=== PATIENT | male | born 1955 | race Caucasian/White ===

== ENCOUNTER 2018-03-13 02:32 | Emergency (ER) | payer SELFPAY ==
[2018-03-13 02:34] VITALS: BP 136/85; PULSE 94; RESP 16; TEMP 36.9; O2SAT 93; BMI 16.7
--- NOTE | 2018-03-13 03:08 | ED.RN ---
PT STATES I'M NOT WAITING. I'VE BEEN HERE HOURS AND I'VE READ TWO PAPERS. PT INFORMED THAT THE X-RAY HAS BEEN ORDERED AND IS READY TO BE TAKEN. PT STATES I'M NOT WAITING. THIS IS RIDICULOUS.
--- NOTE | 2018-03-13 03:10 | ED.RN ---
PATIENT DID NOT WANT TO WAIT TO HAVE AN XRAY DONE AND STATED HE WAS LEAVING. PT LEFT WITHOUT XRAY.
== END 2018-03-13 03:12 | disposition left against medical advice (07) ==
LOC: ED 03:10
PROVIDERS: Emergency Provider Emergency Medicine
DX: R07.81 Pleurodynia (principal)
CPT/HCPCS: 99281

== ENCOUNTER 2019-06-04 13:11 | Emergency (ER) | payer MEDICAID, SELFPAY ==
[2019-06-04 13:13] VITALS: BP 132/75; PULSE 93; RESP 17; TEMP 37.1; O2SAT 97; BMI 21.9
--- NOTE | 2019-06-04 14:19 | ED.VIS.GEN ---
History of Present Illness Informant: Patient, Significant Other Onset: Month(s) - 3-4 months Context: Gradual Onset Timing: Continuous Quality: swelling Location: both legs Current Severity: Severe Maximum Severity: Severe Worsened by: walking Relieved by: rest Associated Symptoms: denies Narrative: 64-year-old male who denies any significant past medical history but does not follow with a primary care physician presents to the emergency department with approximately 3 to 4 months of symmetrical lower extremity edema. Patient has not had any chest pain or shortness of breath, cough, orthopnea, paroxysmal nocturnal dyspnea. Denies recent travel or surgery, hemoptysis or history of DVT or PE. Patient denies trauma. He is not having back pain. He is ambulating normally. He does have some relief with elevation. He has not had a rash. He has no constitutional symptoms. Prior similar symptoms: Yes Recent Illness/Hospitalization: No <Bishnu Quintanilla - Last Filed: 06/04/19 14:34> <Cheryl Newton - Last Filed: 06/04/19 14:41> Chief Complaint: Edema Past Medical History Prior records reviewed: Yes Past Medical History: None Surgical History: tonsillectomy Lives: With Family Smoking Status: Former smoker Alcohol: Occasional Drugs: None <Bishnu Quintanilla - Last Filed: 06/04/19 14:34> <Cheryl Newton - Last Filed: 06/04/19 14:41> - Allergies and Home Meds Allergies/Adverse Reactions: Allergies No Known Allergies Allergy (Verified 06/04/19 13:13) Primary Care Physician: Jonas Shaw MD [STAFF PHYSICIAN] - 3-5 Days Review of Systems All systems negative except as indicated General: Denies: Chills, Fever Eyes: Denies: Visual changes - bilaterally, Blurred Vision - bilaterally, Diplopia ENT: Denies: Rhinorrhea, Sore throat Cardiovascular: Denies: Chest pain, Palpitations, Heart racing Respiratory: Denies: Dyspnea, Cough, Sputum, Dyspnea on exertion, Orthopnea, Paroxysmal nocturnal dyspnea Gastrointestinal: Denies: Abdominal pain, Nausea, Vomiting, Diarrhea Genitourinary: Denies: Dysuria, Hematuria, Frequency Musculoskeletal: Reports: Swelling. Denies: Myalgias, Arthralgias, Neck pain, Back pain, Extremity Pain Skin: Denies: Rash, Abscess, Abrasions, Wounds Neurological: Denies: Headache, Weakness, Parasthesia, Numbness Hematologic: Denies: Easy bruising, Easy bleeding <Gali Quintanillaony - Last Filed: 06/04/19 14:34> Physical Exam Vital Signs/Narrative: Vital Signs Temp Pulse Resp BP Pulse Ox 06/04/19 13:13 98.8 F 93 17 132/75 H 97 Inital Vital Signs reviewed: Yes General: Well nourished, Well developed Head: Normocephalic, Atraumatic Eyes: Perrl, EOMI ENT: Moist mucous membranes, No rhinorrhea Neck: Supple, Nontender Cardiovascular: Regular rate, Regular rhythm, No murmurs Respiratory: No distress, CTA bilaterally, Chest nontender Abdomen: Soft, Nontender, Nondistended, Normal bowel sounds Back: Nontender, Normal Inspection. Negative for: CVA tenderness Extremities: Edema, - - Patient has symmetrical lower extremity edema at 2+. It is pitting edema. There are no rashes seen. He has a very small area of redness on his right medial malleolus with a small wound. There is no lymphatic streaking. DP and PT pulses are both normal and symmetrical. Sensation capillary refill of all 5 toes on both feet are normal. Swelling stops below the knee. He has normal range of motion actively at both knees and hips and there is no groin pain swelling or redness. Negative for: Tenderness, Calf Tenderness Skin: Normal color, No rash, No Trauma Neurological: Alert, Oriented x3 Psychological: Normal affect <Bishnu Quintanilla - Last Filed: 06/04/19 14:34> Vital Signs/Narrative: Vital Signs Temp Pulse Resp BP Pulse Ox 06/04/19 13:13 98.8 F 93 17 132/75 H 97 <Cheryl Newton - Last Filed: 06/04/19 14:41> Diagnostic/Tx/Re-eval - Medical Decision Making Patient presents with chronic lower extremity edema. Is bilateral and symmetrical. He is not short of breath. His vital signs are stable. He does not have any signs or symptoms that would require ED workup. He will be started on Keflex. He will elevate his legs. He will follow-up with primary care to which she was referred to return for worsening symptoms which were discussed <Bishnu Quintanilla - Last Filed: 06/04/19 14:34> - Medical Decision Making Patient was seen with Bishnu the PA agree with history and physical as above, patient presents with bilateral lower extremity edema that is been chronic for many months this improves with elevation indicates he has some redness around the malleoli medially bilaterally for unspecified reasons he has no history of MRSA or infection he has no fever cough chest pain abdominal pain on exam he does have 2-3+ lower extremity edema and he has some redness over the malleoli bilaterally no vesicles no signs of acute vascular insufficiency or deep-seated infection clinically looks well We discussed ED work-up he declined that preferring outpatient management he will be started on Keflex wound care and to follow-up with his outpatient providers for further management see the chart for full details <Cheryl Newton - Last Filed: 06/04/19 14:41> ED Disposition <Bishnu Quintanilla - Last Filed: 06/04/19 14:34> <Cheryl Newton - Last Filed: 06/04/19 14:41> - Plan for ED Patient: Disposition: Home or Assisted Living Instructions: ED Peripheral Edema, Bilateral Prescriptions: Cephalexin [Keflex] 500 mg PO Q12 #14 cap Prescription Printed Referrals: Jonas Shaw MD [STAFF PHYSICIAN] - 3-5 Days
== END 2019-06-04 14:54 | disposition home or self-care (01) ==
PROVIDERS: Emergency Provider Physician Assistant Medical
DX: R60.0 Localized edema (principal); Z87.891 Personal history of nicotine dependence
CPT/HCPCS: 99283

== ENCOUNTER 2019-09-12 15:59 | Emergency (ER) | payer MEDICAID, SELFPAY ==
[2019-09-12 15:59] VITALS: BP 153/86; PULSE 107; RESP 20; TEMP 36.8; O2SAT 97; BMI 23.6
[2019-09-12 16:46] VITALS: BP 153/86; PULSE 107; RESP 20; TEMP 36.8; O2SAT 97
--- NOTE | 2019-09-12 16:50 | EKG12_ITS ---
Test Reason : Blood Pressure : / mmHG Vent. Rate : 113 BPM Atrial Rate : 113 BPM P-R Int : 172 ms QRS Dur : 076 ms QT Int : 334 ms P-R-T Axes : 061 060 066 degrees QTc Int : 458 ms Sinus tachycardia Otherwise normal ECG Confirmed by ALEXA SCHULTZ ([id number]), video editor JAMES POLO ([id number]) on 09/19/2019 1:41:42 PM Referred By: KIMBERLY Confirmed By:ALEXA SCHULTZ
--- NOTE | 2019-09-12 16:55 | ED.VIS.GI ---
History of Present Illness Chief Complaint: Nausea/Vomiting/Diarrhea Informant: Patient Limited: Uncooperative - Abdominal Pain/Flank Pain Onset: Today - Nausea/Vomiting/Emesis GI Symptom: Nausea, Vomiting Quality: Coffee ground, Hematemesis - Diarrhea/Melena/Hematochezia GI Symptom: Melena Narrative: Is a 64-year-old male with history of daily alcohol use but no other known medical history presenting with confusion and hematemesis. He was dropped off by a friend who relates that patient started throwing up blood today. Patient intermittently lives with different family members. Family is noting some increased swelling of his legs besides that have not noticed anything else different. Patient is alert but confused unable to contribute further to his history. Is not clear what his last drink was. No other complaints noted at this time. With his brother, Ed. He states that he thinks his last drink was 3 to 4 days ago and the patient does drink heavily. Not aware patient has any history of alcohol withdrawal. Patient's symptoms of vomiting diarrhea apparently started today. His brother is not aware of patient having any medical history. He states he does reside in the [facility] normally. This information is mostly related from his girlfriend. Prior similar symptoms: No Past Medical History - Allergies and Home Meds Allergies/Adverse Reactions: Allergies No Known Allergies Allergy (Verified 09/12/19 16:43) Primary Care Physician: Care Physician,No Primary [Primary Care Provider] - Past Medical History: None Surgical History: tonsillectomy Lives: With Family Smoking Status: Current every day smoker Alcohol: Heavy Review of Systems ROS: Unable to Obtain - Review of systems is limited secondary to patient's confusion and inability to contribute to review of systems Gastrointestinal: Reports: Nausea, Vomiting, Melena Musculoskeletal: Reports: Swelling Physical Exam Vital Signs/Narrative: Vital Signs Temp Pulse Resp BP Pulse Ox 09/12/19 16:46 98.3 F 107 H 20 H 153/86 H 97 09/12/19 15:59 98.3 F 107 H 20 H 153/86 H 97 Inital Vital Signs reviewed: Yes General: Well nourished, Well developed, No Acute Distress Head: Normocephalic, Atraumatic Eyes: Perrl, EOMI ENT: No rhinorrhea, Dry mucous membranes, - - Dried blood noted in the mouth Neck: Supple, Nontender, No JVD Cardiovascular: Regular rhythm, No murmurs, Tachycardia Respiratory: No distress, CTA bilaterally, Chest nontender Abdomen: Soft, Nontender, Nondistended, Hyperactive bowel sounds : - - Positive melena on exam Back: Nontender, Normal Inspection Extremities: Nontender, Edema - 1+ pedal edema bilaterally Skin: No rash, Jaundice, Rash Neurological: Alert, Cranial nerves II-XII grossly intact, Normal Strength, Normal Sensation, Confused, Disoriented Psychological: Normal affect, - - Patient mildly cooperative, constantly moving back and forth in the bed Diagnostic/Tx/Re-eval Laboratory Data 09/12/19 09/12/19 09/12/19 14:25 14:25 14:25 WBC 6.1 RBC 2.90 L Hgb 11.1 L Hct 32.3 L MCV 111.4 H MCH 38.3 H MCHC 34.4 RDW Std Deviation 61.5 H RDW Coeff of Abhinav 15.2 H Plt Count 54 L MPV 11.5 Immature Gran % (Auto) 0.500 Neut % (Auto) 74.8 H Lymph % (Auto) 14.0 L [place] % (Auto) 10.4 H Eos % (Auto) 0.0 Baso % (Auto) 0.3 Absolute Neuts (auto) 4.6 Absolute Lymphs (auto) 0.85 Nucleated RBC % 0 Platelet Estimate MKD DEC RBC Morphology NORM C+C PT INR APTT Sodium 142 Potassium 3.2 L Chloride 104 Carbon Dioxide 31.0 Anion Gap 7 BUN 17 Creatinine 0.56 L Estim Creat Clear Calc 133.26 Est GFR (MDRD) Af Amer 188 Est GFR (MDRD) Non-Af 155 BUN/Creatinine Ratio 30.2 H Glucose 159 H Lactic Acid 4.3 H* Calcium 7.9 L Total Bilirubin 4.30 H Direct Bilirubin 1.96 H AST 97 H ALT 44 Alkaline Phosphatase 147 H Ammonia Troponin I 0.019 Total Protein 6.9 Albumin 2.1 L Globulin 4.8 H Lipase 163 Blood Type Antibody Screen 09/12/19 09/12/19 09/12/19 14:25 16:10 17:30 WBC RBC Hgb Hct MCV MCH MCHC RDW Std Deviation RDW Coeff of Bahinav Plt Count MPV Immature Gran % (Auto) Neut % (Auto) Lymph % (Auto) [place] % (Auto) Eos % (Auto) Baso % (Auto) Absolute Neuts (auto) Absolute Lymphs (auto) Nucleated RBC % Platelet Estimate RBC Morphology PT Cancelled INR Cancelled APTT Cancelled Sodium Potassium Chloride Carbon Dioxide Anion Gap BUN Creatinine Estim Creat Clear Calc Est GFR (MDRD) Af Amer Est GFR (MDRD) Non-Af BUN/Creatinine Ratio Glucose Lactic Acid Calcium Total Bilirubin Direct Bilirubin AST ALT Alkaline Phosphatase Ammonia 155.0 H Troponin I Total Protein Albumin Globulin Lipase Blood Type O POSITIVE Antibody Screen NEGATIVE 09/12/19 18:25 WBC RBC Hgb Hct MCV MCH MCHC RDW Std Deviation RDW Coeff of Abhinav Plt Count MPV Immature Gran % (Auto) Neut % (Auto) Lymph % (Auto) [place] % (Auto) Eos % (Auto) Baso % (Auto) Absolute Neuts (auto) Absolute Lymphs (auto) Nucleated RBC % Platelet Estimate RBC Morphology PT 24.1 H INR 2.2 APTT 41.5 H Sodium Potassium Chloride Carbon Dioxide Anion Gap BUN Creatinine Estim Creat Clear Calc Est GFR (MDRD) Af Amer Est GFR (MDRD) Non-Af BUN/Creatinine Ratio Glucose Lactic Acid Calcium Total Bilirubin Direct Bilirubin AST ALT Alkaline Phosphatase Ammonia Troponin I Total Protein Albumin Globulin Lipase Blood Type Antibody Screen - Rhythm Strip Rhythm Strip: Sinus Tach Rate: 113 Ectopy: None - EKG Initial EKG Interpretation: Sinus Tachycardia, - - Sinus tachycardia at a rate of 113 Normal intervals QTc 458 Normal axis - Medical Decision Making Patient is evaluated for Altered mental status, hematemesis and diarrhea. Physical exam patient is encephalopathic, slightly jaundiced and has melena. He has a hemoglobin 11.1. He does have thrombocytopenia of 54. I do not have any prior records to compare to. Patient's PTT is prolonged as well as his PT. His INR is 2.2 however patient is not on any anticoagulation that we are aware of. Patient has a lactic acidosis however suspect this is from his acute GI bleed or dehydration. I do not have an obvious source of infection. He is not having focal neurologic deficits. His kidney function is normal. His total bilirubin is elevated at 4.3 and his direct bilirubin is 1.96. Patient's AST is mildly elevated at 97 with a normal ALT. His laboratory findings are concerning for cirrhosis of the liver. In addition his ammonia level is 155. Given that patient likely has cirrhosis of the liver it is possible he could have a bleeding varices. As you do not have GI here, surgery recommended transfer to a place that has capabilities of for banding. We do not have platelets on site either so they are not ordered. FFP is not ordered because it will not fall out in time for transfer. Patient is accepted by Dr. Grier at in general to the ICU. He is given a liter of IV fluids as well as IV Protonix in the emergency room. Because he is initially hypertensive and tachycardic he is given IV Ativan for concern of possible alcohol withdrawal contributing to his abnormal vital signs. Patient's brother is updated on the plan of care and is agreeable. Patient does not have further bleeding episodes in the emergency room. Disposition: Transfer Transferred to: [facility] Critical care time (excluding procedures): 30-74 minutes - 45 min. Patient is critically ill with hepatic encephalopathy and an acute GI bleed. Requires frequent bedside reevaluation, discussion with family on plan of care as well as transfer to higher level of care. I had made multiple phone calls including calls over the transfer line as well as discussion with our general surgeon. ED Disposition - Plan for ED Patient: Disposition: [facility] Diagnosis: GI bleed, Thrombocytopenia, Hepatic encephalopathy, Elevated bilirubin, History of alcohol abuse Referrals: Care Physician,No Primary [Primary Care Provider] -
--- NOTE | 2019-09-12 16:57 | NURSING ---
NO OLD EKGS
[2019-09-12 17:18] LABS: Absolute Lymphocyte Count 0.85 X10^3/uL (0.83-4.51); Absolute Neutrophil Count 4.6 X10^3/uL (2.0-7.7); Basophil# 0.02 X10^3/uL; Basophil% 0.3 % (0-1); Hematocrit 32.3 % (40-54); Hemoglobin 11.1 g/dL (13.0-16.5); Lymphocyte # 0.85 X10^3/ul (4.0); Mean Corp Hgb Conc 34.4 g/dL (32-36); Mean Corpuscular Hgb 38.3 pg (27.0-32.0); Mean Corpuscular Volume 111.4 fL (80-94); Mean Platelet Vol. 11.5 fl (6.2-12.0); Monocyte# 0.63 X10^3/uL; Monocyte% 10.4 % (0-10); NRBC Flagged by Analyzer 0 % (0-5); Neutrophil # 4.55 X10^3/uL (2.7-7.7); Neutrophil % 74.8 % (47-70); POSITIVE COUNT YES; Platelet Count 54 K/mm3 (150-450); RBC Distribution Width CV 15.2 % (11.6-14.6); RBC Distribution Width SD 61.5 fl (35.1-43.9); White Blood Count 6.1 K/mm3 (4.4-11.0)
[2019-09-12] MEDS: 0.9% Normal Saline 1,000 ML 1000 ML IV (17:21)
[2019-09-12] MEDS: Ondansetron 4 MG/2 ML Vial IV (17:23)
[2019-09-12 17:24] LABS: Differential Indicated SCAN CRITERIA MET
[2019-09-12] MEDS: LORazepam 2 MG/ML Syringe 0.5 MG IV (17:24)
[2019-09-12 17:26] VITALS: BP 147/75; PULSE 111; RESP 20; TEMP 36.9; O2SAT 93
[2019-09-12 17:31] LABS: AST(SGOT) 97 U/L (15-37); Alanine Aminotransfer ALT/SGPT 44 U/L (16-61); Albumin, Serum 2.1 g/dL (3.2-5.0); Alkaline Phosphatase 147 U/L (45-117); Anion Gap 7 (5-15); BUN 17 mg/dL (7-18); BUN/Creat Ratio 30.2 RATIO (10-20); Bilirubin, Direct 1.96 mg/dL (0.00-0.30); Calcium,Total 7.9 mg/dL (8.5-10.1); Chloride 104 mmol/L (98-107); Creatinine, Serum 0.56 mg/dL (0.70-1.30); EST Glomerular Filtration Rate 155 mL/min (>60); Est Glom Filt Rate - Afr Amer 188 mL/min (>60); Estimated Creatinine Clearance 133.26 ml/min; Globulin 4.8 g/dL (2.2-4.2); Glucose 159 mg/dL (74-106); Lipase 163 U/L (73-393); Potassium 3.2 mmol/L (3.5-5.1); Protein, Total 6.9 g/dL (6.4-8.2); Sodium Level 142 mmol/L (136-145)
[2019-09-12 17:34] LABS: Lactic Acid 4.3 mmol/L (0.4-1.9)
--- NOTE | 2019-09-12 17:43 | NURSING ---
PER MAXINE LEWIS, PT, PTT HEMOLIZED
--- NOTE | 2019-09-12 18:27 | NURSING ---
CALLED [facility] FAXED FACESHEET
[2019-09-12 18:36] LABS: Platelet Estimate MKD DEC (ADEQ); Red Cell Morphology NORM C+C NORMAL (NORM C&C)
[2019-09-12 18:51] LABS: International Normalized Ratio 2.2; Prothrombin Time (Protime)PT. 24.1 SECONDS (11.7-14.9)
[2019-09-12 18:52] LABS: Partial Thromboplast Time 41.5 Seconds (24.1-36.2)
[2019-09-12 19:08] VITALS: BP 145/75; PULSE 123; RESP 17; TEMP 36.6; O2SAT 95; O2SAT 96
--- NOTE | 2019-09-12 19:11 | ED.RN ---
Dr Funez made aware pt meet sepsis alert criteria. No new orders at this time.
[2019-09-12] MEDS: 0.9% Normal Saline 1,000 ML 125 ML IV (19:38)
--- NOTE | 2019-09-12 20:17 | ED.RN ---
CALLED [facility] TO TRANSPORT THIS PT TO [facility], TRANSPORT DECLINED WITH NO REASON GIVEN. CALLED [facility] TO TRANSPORT THIS PT, ETA OF ONE HOUR GIVEN AT 1950
[2019-09-12 20:46] VITALS: BP 138/69; PULSE 118; RESP 20; TEMP 36.8; O2SAT 95
[2019-09-12 21:06] LABS: Reflex Lactate? Y
--- NOTE | 2019-09-13 15:27 | ED.RN ---
[facility]
== END 2019-09-12 21:00 | disposition short-term general hospital (02) ==
PROVIDERS: Emergency Provider Emergency Medicine
DX: K92.2 Gastrointestinal hemorrhage, unspecified (principal); F17.200 Nicotine dependence, unspecified, uncomplicated; D69.6 Thrombocytopenia, unspecified; K72.90 Hepatic failure, unspecified without coma
CPT/HCPCS: 80048; 80076; 82140; 82274; 83605; 83690; 84484; 85025; 85610; 85730; 86850; 86900; 86901; 87040; 93005; 96361; 96365; 96375; 99285; J7030; A4216; J2405; J3490

== ENCOUNTER 2020-04-23 16:23 | Emergency (ER) | payer MEDICARE, MEDICAID, SELFPAY ==
[2020-04-23 16:24] VITALS: BP 121/67; PULSE 101; RESP 16; TEMP 35.9; O2SAT 96; BMI 23.9
--- NOTE | 2020-04-23 17:02 | US_ITS ---
STUDY: VENOUS DOPPLER ULTRASOUND - RIGHT LOWER EXTREMITY REASON FOR EXAM: Male, 65 years old. RT ANKLE REDNESS AND SWELLING TECHNIQUE: Ultrasound evaluation of the deep vein system to include radford-scale imaging and compression was performed. Radford-scale imaging and Doppler sonographic evaluation, including duplex spectral analysis and qualitative color flow sonography, was performed. COMPARISON: None. FINDINGS: Common Femoral Vein: Normal compression, spontaneity and augmentation. Normal color Doppler. Common Femoral Vein/Greater Saphenous Junction: Normal compression, spontaneity and augmentation. Normal color Doppler. Femoral Proximal: Normal compression, spontaneity and augmentation. Normal color Doppler. Femoral Middle: Normal compression, spontaneity and augmentation. Normal color Doppler. Femoral Distal: Normal compression, spontaneity and augmentation. Normal color Doppler. Popliteal Vein: Normal compression, spontaneity and augmentation. Normal color Doppler. Posterior Tibial Vein: Normal compression, spontaneity and augmentation. Normal color Doppler. Peroneal Vein: Normal compression, spontaneity and augmentation. Normal color Doppler. US/Venous Duplex Imag/Limited/Uni IMPRESSION: No demonstrated DVT Electronically Signed: Vickey Carrero MD at 17:52 EST , Service support ,
--- NOTE | 2020-04-23 17:09 | ED.VIS.GEN ---
History of Present Illness Chief Complaint: Lower Extremity Injury Informant: Patient Onset: Days Context: Gradual Onset Timing: Continuous Current Severity: Moderate Maximum Severity: Moderate Narrative: Patient is a 65-year-old male with medical history significant for liver disease, alcohol abuse, who presents to the emergency department with right ankle injury. Patient states he twisted his ankle a few days ago. Since then, he had increased swelling. He states he was concerned that he may have a blood clot. He has no history of PE or DVT. He states that he just noticed it was more bruised and more swollen. He is still able to bear weight on it. He denies other injury. He states he is otherwise been in his normal state of health. He states his been compliant with his medications. Prior similar symptoms: No Recent Illness/Hospitalization: No Past Medical History - Allergies and Home Meds Allergies/Adverse Reactions: Allergies No Known Allergies Allergy (Verified 04/23/20 16:26) Primary Care Physician: Care Physician,No Primary [NON-STAFF] - Prior records reviewed: Yes Past Medical History: - - Alcohol abuse, liver disease, hypertension Surgical History: tonsillectomy Smoking Status: Never smoker Review of Systems General: Denies: Chills, Fever, Sweats Eyes: Denies: Visual changes - bilaterally, Diplopia ENT: Denies: Rhinorrhea, Sore throat Cardiovascular: Denies: Chest pain, Palpitations Respiratory: Denies: Dyspnea, Cough, Dyspnea on exertion Gastrointestinal: Denies: Abdominal pain, Nausea, Vomiting, Diarrhea, Melena, Hematochezia Genitourinary: Denies: Dysuria, Hematuria, Frequency Musculoskeletal: Reports: Myalgias, Arthralgias. Denies: Back pain, Extremity Pain Skin: Denies: Rash, Wounds Neurological: Denies: Headache, Weakness, Numbness Physical Exam Vital Signs/Narrative: Vital Signs Temp Pulse Resp BP Pulse Ox 04/23/20 16:24 96.7 F L 101 H 16 121/67 H 96 Inital Vital Signs reviewed: Yes General: Well nourished, Well developed, No Acute Distress Head: Normocephalic, Atraumatic Eyes: Perrl, EOMI ENT: Moist mucous membranes, No rhinorrhea Neck: Supple, Nontender Cardiovascular: Regular rate, Regular rhythm, No murmurs Respiratory: No distress, CTA bilaterally, Chest nontender Abdomen: Soft, Nontender, Nondistended, Normal bowel sounds Back: Nontender, Normal Inspection Extremities: Tenderness - Patient does have tenderness over the medial malleolus of the right ankle. There is normal pulses. He does have symmetric edema bilateral lower extremities. There is some bruising., Edema Skin: Normal color, No rash Neurological: Alert, Oriented x3, Cranial nerves II-XII grossly intact, Normal Strength, Normal Sensation Psychological: Normal affect, Normal Mood Diagnostic/Tx/Re-eval Clinical Impression(s) from Imaging Studies Ankle X-Ray 04/23/20 17:10 IMPRESSION: Diffuse osteopenia with degenerative changes in the right ankle but no demonstrated fracture. There is however diffuse soft tissue swelling, and a subtle occult fracture cannot be excluded Electronically Signed: Vickey Carrero MD at 17:37 EST , Service support , - Medical Decision Making Patient presents with right lower extremity injury and swelling. His pulses are normal. His skin is edematous, but I feel is likely secondary to his injury. I did obtain plain films. These were reviewed by myself and the radiologist. There is no evidence of acute fracture dislocation. There is osteopenia, and the radiologist did state that occult fracture cannot be ruled out, but the patient is able to bear weight. I also obtained an ultrasound. There is no evidence of DVT. The patient will be placed in an Aircast for comfort. He will continue ice and elevation. He will be discharged home. Impression 1. Right ankle sprain ED Disposition - Plan for ED Patient: Instructions: ED Ankle Sprain (Adult) Referrals: Care Physician,No Primary [NON-STAFF] -
--- NOTE | 2020-04-23 17:10 | RAD_ITS ---
STUDY: X-RAY - RIGHT ANKLE REASON FOR EXAM: Male, 65 years old. right ankle pain and swelling, redness, x 3 days TECHNIQUE: 3 view(s) of the ankle. COMPARISON: None. FINDINGS: Bones are diffusely demineralized. There is no demonstrated fracture or ankle mortise abnormality. However, there is diffuse soft tissue swelling of a subtle occult fracture cannot be excluded. On only the oblique film there is a subtle cortical jump in the distal fibula but there is no lucency, and this is not seen on the other images. RAD/Ankle min 3 Views IMPRESSION: Diffuse osteopenia with degenerative changes in the right ankle but no demonstrated fracture. There is however diffuse soft tissue swelling, and a subtle occult fracture cannot be excluded Electronically Signed: Vickey Carrero MD at 17:37 EST , Service support ,
== END 2020-04-23 18:02 | disposition home or self-care (01) ==
PROVIDERS: Emergency Provider Emergency Medicine
DX: S93.401A Sprain of unspecified ligament of right ankle, initial encounter (principal); M79.89 Other specified soft tissue disorders; I10 Essential (primary) hypertension; X50.1XXA Overexertion from prolonged static or awkward postures, initial encounter
CPT/HCPCS: 73610; 93971; 99283

== ENCOUNTER 2020-09-13 18:28 | Emergency (ER) | payer MEDICARE, MEDICAID, SELFPAY ==
[2020-09-13 18:29] VITALS: BP 151/72; PULSE 101; RESP 17; TEMP 36.6; O2SAT 6; BMI 22.2
[2020-09-13 19:05] VITALS: BP 135/79; PULSE 102; RESP 16; TEMP 37.2; O2SAT 98
--- NOTE | 2020-09-13 19:08 | US_ITS ---
STUDY: VENOUS DOPPLER ULTRASOUND - RIGHT LOWER EXTREMITY REASON FOR EXAM: Male, 65 years old. RT LOWER CALF CELLULITIS TECHNIQUE: Ultrasound evaluation of the deep vein system to include radford-scale imaging and compression was performed. Radford-scale imaging and Doppler sonographic evaluation, including duplex spectral analysis and qualitative color flow sonography, was performed. COMPARISON: 04/23/20. FINDINGS: Common Femoral Vein: Normal compression, spontaneity and augmentation. Normal color Doppler. Common Femoral Vein/Greater Saphenous Junction: Normal compression. Femoral Proximal: Normal compression. Femoral Middle: Normal compression, spontaneity and augmentation. Normal color Doppler. Femoral Distal: Normal compression. Popliteal Vein: Normal compression, spontaneity and augmentation. Normal color Doppler. Posterior Tibial Vein: Normal compression. Peroneal Vein: Normal compression. There is no demonstrated deep venous thrombosis. US/Venous Duplex Imag/Limited/Uni IMPRESSION: No DVT identified. Electronically Signed: Zach Witt MD at 20:29 EDT Tel , Service support ,
[2020-09-13 19:12] VITALS: BP 135/79; PULSE 101; RESP 15; TEMP 37.2; O2SAT 99
[2020-09-13 19:40] LABS: Absolute Lymphocyte Count 1.11 X10^3/uL (0.83-4.51); Absolute Neutrophil Count 7.7 X10^3/uL (2.0-7.7); Basophil# 0.08 X10^3/uL; Basophil% 0.8 % (0-1); Eosinophil# 0.17 X10^3/uL; Eosinophils% 1.6 % (0-5); Hematocrit 39.5 % (40-54); Hemoglobin 14.1 g/dL (13.0-16.5); Lymphocyte # 1.11 X10^3/ul (0.83-4.51); Lymphocyte % 10.7 % (19-41); Mean Corp Hgb Conc 35.7 g/dL (32-36); Mean Corpuscular Hgb 38.7 pg (27.0-32.0); Mean Corpuscular Volume 108.5 fL (80-94); Mean Platelet Vol. 10.4 fl (6.2-12.0); Monocyte# 1.32 X10^3/uL; Monocyte% 12.7 % (0-10); NRBC Flagged by Analyzer 0 % (0-5); Neutrophil # 7.66 X10^3/uL (2.7-7.7); Neutrophil % 73.6 % (47-70); Platelet Count 107 K/mm3 (150-450); RBC Distribution Width CV 15.5 % (11.6-14.6); RBC Distribution Width SD 62.8 fl (35.1-43.9); Red Blood Count 3.64 M/mm3 (4.6-6.2); White Blood Count 10.4 K/mm3 (4.4-11.0)
[2020-09-13 19:57] LABS: International Normalized Ratio 1.9; Prothrombin Time (Protime)PT. 20.6 SECONDS (11.7-14.9)
[2020-09-13] MEDS: Cefazolin 1 GM/50 ML BAG IV (19:59)
[2020-09-13 20:02] LABS: Anion Gap 5 (5-15); BUN 7 mg/dL (7-18); BUN/Creat Ratio 12.4 RATIO (10-20); Calcium,Total 8.2 mg/dL (8.5-10.1); Chloride 94 mmol/L (98-107); Creatinine, Serum 0.56 mg/dL (0.70-1.30); EST Glomerular Filtration Rate 154 mL/min (>60); Est Glom Filt Rate - Afr Amer 186 mL/min (>60); Estimated Creatinine Clearance 130.78 ml/min; Glucose 100 mg/dL (74-106); Potassium 4.7 mmol/L (3.5-5.1); Sodium Level 126 mmol/L (136-145)
[2020-09-13 20:13] VITALS: BP 152/81; PULSE 105; RESP 16; TEMP 37.6; O2SAT 97
[2020-09-13 21:12] VITALS: BP 118/67; PULSE 103; RESP 16; O2SAT 97
--- NOTE | 2020-09-13 21:44 | EX.ED.DYSGE1 ---
HPI History of Present Illness Chief Complaint: Cellulitis Informant: patient Onset/Context/Timing Onset: Days (5) Context: Gradual Onset Timing: Continuous Quality: Burning Location: Right lower leg Worsened by: Weightbearing, movement Relieved by: Rest Narrative Narrative: Patient presents with redness and swelling to his right calf that has been getting worse over the past 5 days. Patient denies any trauma or injury. Patient states the pain is burning. Patient states the pain is over the right lower leg. Patient states the pain is worse with weightbearing and movement. Patient states the pain is better with rest. Patient denies any fevers or chills. [facility] Medical History Hepatitis Home Medications furosemide 40 mg PO DAILY 04/23/20 [History Last Taken Unknown] spironolactone 100 mg PO DAILY 04/23/20 [History Last Taken Unknown] cephalexin 500 mg PO Q6 #40 capsule 09/13/20 [Rx Last Taken Unknown] Allergy/AdvReac Type Severity Reaction Status Date / Time No Known Allergies Allergy Verified 09/13/20 18:31 Surgical History (Updated 09/14/20 @ 01:[address] Taiwo Chan DO) History of surgery on left wrist Social History Smoking Status: Former smoker ROS ROS ED Constitutional Constitutional ED: Denies chills or fever(s) Eyes Eyes: Denies blurry vision or change in vision ENT ENT ED: Denies rhinorrhea or sore throat Cardiovascular Cardiovascular: Denies chest pain or palpitations Respiratory/Chest Respiratory/Chest: Denies cough or dyspnea Gastrointestinal Gastrointestinal: Denies nausea or vomiting Genitourinary Genitourinary ED: Denies dysuria or hematuria Musculoskeletal Musculoskeletal: Denies back pain or neck pain Integumentary Denies abscess or rash Neurologic Neurologic: Denies headache(s) or weakness Allergic/Immunologic Allergic/Immunologic ED: Denies mouth swelling or urticaria EXAM Physical Exam Const Vital Signs: 09/13/20 18:29 09/13/20 19:05 09/13/20 19:12 Temperature 97.8 F 99.0 F 99.0 F Temperature Source Temporal Oral Oral Pulse Rate 101 H 102 H 101 H Respiratory Rate 17 16 15 Blood Pressure 151/72 H 135/79 H 135/79 H Blood Pressure Mean 98 97 97 Pulse Ox 6 98 99 Oxygen Delivery Method Room Air Room Air Room Air 09/13/20 20:13 09/13/20 21:12 09/13/20 22:12 Temperature 99.6 F H Temperature Source Oral Pulse Rate 105 H 103 H 88 Respiratory Rate 16 16 15 Blood Pressure 152/81 H 118/67 153/87 H Blood Pressure Mean 104 84 Pulse Ox 97 97 99 Oxygen Delivery Method Room Air Room Air Positive well nourished and well developed General Appearance ED: well developed HEENT Reports moist mucous membranes Neck supple and no JVD Resp normal respiratory effort and clear to auscultation bilaterally Cardio regular rate and regular rhythm GI normal to inspection, nondistended, normoactive bowel sounds and non-tender Palpation: soft Neuro oriented x3, CN's II-XII intact bilaterally and no sensory deficits noted Sensorium / Orientation: alert Motor Exam: strength 5/5 throughout Skin Skin Narrative: There is erythema and warmth over the right lower leg and foot. There is no evidence of any trauma. There is no edema or ecchymosis. There is tenderness over the right calf. Range of motion of the right lower leg and right foot were limited secondary to pain. There is no discharge or drainage. MDM MDM MDM Narrative Medical decision making narrative: Venous duplex of the right lower extremity was obtained and was within normal limits. There is no evidence of DVT. CBC was normal. PT with INR and PTT were slightly elevated with the INR of 1.9 and PTT of 40.0. Basic metabolic profile showed a slightly low sodium of 126 but the remainder was within normal limits. Patient was given a dose of Ancef here. Patient was given a prescription for Keflex. Patient was instructed to continue his Lasix and spironolactone as previously prescribed. Patient was instructed to follow-up with his primary care physician in 3-5 days. Patient understood and was agreeable with the plan. All questions were answered. Lab Data Attestation: I reviewed the patient's lab results. Labs: Laboratory Results - last 24 hr 09/13/20 09/13/20 09/13/20 19:20 19:20 19:20 WBC 10.4 RBC 3.64 L Hgb 14.1 Hct 39.5 L MCV 108.5 H MCH 38.7 H MCHC 35.7 RDW Std Deviation 62.8 H RDW Coeff of Abhinav 15.5 H Plt Count 107 L MPV 10.4 Immature Gran % (Auto) 0.600 Neut % (Auto) 73.6 H Lymph % (Auto) 10.7 L [place] % (Auto) 12.7 H Eos % (Auto) 1.6 Baso % (Auto) 0.8 Absolute Neuts (auto) 7.7 Absolute Lymphs (auto) 1.11 Nucleated RBC % 0 PT 20.6 H INR 1.9 APTT 40.0 H Sodium 126 L Potassium 4.7 Chloride 94 L Carbon Dioxide 27.0 Anion Gap 5 BUN 7 Creatinine 0.56 L Estim Creat Clear Calc 130.78 Est GFR (MDRD) Af Amer 186 Est GFR (MDRD) Non-Af 154 BUN/Creatinine Ratio 12.4 Glucose 100 Calcium 8.2 L Radiography Diagnostic Testing: Radiology Impression Venous Duplex 09/13/20 19:08 IMPRESSION: No DVT identified. Electronically Signed: Zach Witt MD at 20:29 EDT Tel , Service support , Discharge Plan Triage Chief Complaint: Cellulitis ED Provider: Taiwo Chan Dx/Rx/DC Orders Clinical Impression: Cellulitis of right lower leg Instructions: ED Cellulitis Prescriptions: New cephalexin [cephalexin] 500 MG capsule 500 mg PO Q6 Qty: 40 RF: 0 No Action furosemide 40 MG tablet 40 mg PO DAILY RF: 0 spironolactone 100 MG tablet 100 mg PO DAILY RF: 0 Referrals: TAO MATUTE [Other] - 3-5 Days Disposition Disposition: Home, self care Discharge Date/Time: 09/13/20 22:13
[2020-09-13 22:12] VITALS: BP 153/87; PULSE 88; RESP 15; O2SAT 99
--- NOTE | 2020-09-15 15:03 | ED.RN ---
DR LESLIE REVIEWED PRELIMINARY BLOOD CULTURE RESULTS. AT THIS TIME, WAIT TO SEE FINAL RESULTS BEFORE CHANGING TREATMENT
== END 2020-09-13 22:13 | disposition home or self-care (01) ==
PROVIDERS: Emergency Provider Emergency Medicine
DX: L03.115 Cellulitis of right lower limb (principal); K75.9 Inflammatory liver disease, unspecified; Z87.891 Personal history of nicotine dependence
CPT/HCPCS: 80048; 85025; 85610; 85730; 87040; 87077; 93971; 96365; 99283; A4216

== ENCOUNTER 2020-09-16 20:10 | Emergency (ER) | payer MEDICARE, MEDICAID, SELFPAY ==
[2020-09-16] VITALS (15 sets, daily range): BP systolic 109–138; BP diastolic 63–83; PULSE 99–100; RESP 13–18; TEMP 37; O2SAT 98–100; BMI 23.6
--- NOTE | 2020-09-16 20:13 | EKG12_ITS ---
Test Reason : NEURO Blood Pressure : / mmHG Vent. Rate : 096 BPM Atrial Rate : 096 BPM P-R Int : 180 ms QRS Dur : 076 ms QT Int : 340 ms P-R-T Axes : 045 051 055 degrees QTc Int : 429 ms Normal sinus rhythm Normal ECG Confirmed by LOKESH ISIDRO, JOVAN ([id number]), editorial writer MERRY KIMBALL ([id number]) on 09/18/2020 9:07:21 AM Referred By: LOI Confirmed By:JOVAN CAMPA MD
--- NOTE | 2020-09-16 20:18 | CT_ITS ---
EXAMINATION : Head CT w/out contrast HISTORY : Neuro deficit, acute, stroke suspected COMPARISON : None. TECHNIQUE : Multiple contiguous axial images were obtained from the skull base to the vertex without intravenous contrast. A radiation dose optimization technique was used for this scan. FINDINGS : There is a 2.9 x 2 cm region of hyperdense intracerebral hemorrhage centered in the right basal ganglia. No significant mass effect, midline shift or herniation. There is no extra-axial fluid collection. Normal size of the ventricles. There are periventricular white matter changes consistent with chronic microvascular ischemic disease. The skull base and calvarium are unremarkable. The orbits are unremarkable. The paranasal sinuses are clear. The mastoid air cells are well-aerated. The soft tissues are unremarkable. CT/STROKE Brain/Head without Cont IMPRESSION: Acute hypertensive intracerebral hemorrhage in the right basal ganglia. No significant mass effect. Chronic ischemic changes of the brain. N.B. : The above information has been verbally conveyed by Mega Hameed MD to Javon Hobson MD, on 09/16/2020 20:27:53 (ET). Electronically Signed: Mega Hameed MD at 20:28 EDT Tel , Service support ,
--- NOTE | 2020-09-16 20:36 | ED.RN ---
[facility]AVIS RN ON PHONE WITH [facility] STROKE ALERT AT THIS TIME. CT SCAN SHOWS BLEED. DR. JUAN IN WITH PATIENT AND FAMILY AT THIS TIME. PATIENT REQUESTING TRANSFER TO [facility] FOR CARE. PER DR. JUAN NO NEED TO TELESTROKE WITH [facility] SINCE THEY ARE REQUESTING A DIFFERENT HOSPITAL
--- NOTE | 2020-09-16 20:42 | EDS_ITS ---
HPI History of Present Illness Chief Complaint: Neuro S/Sx Informant: patient and EMS Onset/Context/Timing Onset: Today and Hours Context: Sudden Onset Timing: Continuous Quality and Location: Positive for Left Facial Droop, Left Arm Weakness, Left Leg Weakness and Slurred Speech Current Severity: Severe Maximum Severity: Severe Associated Symptoms Associated Symptoms: Positive for Headache and Nausea Narrative Narrative: 65-year-old male history of hypertension. Went to the shower and around 7:30 PM heard a fall. When she went to find out what happened he had decreased speech and was weak on the left side. Squad was called and he was brought immediately to emergency department. His blood sugar is 137. He has no history of stroke. Currently there is limited information on his history and his no family present. Reportedly he is on no blood thinners. Prior similar symptoms: No Recent Illness/Hospitalization: No PFSH PFS Medical History Hepatitis Home Medications furosemide 40 mg PO DAILY 04/23/20 [History Last Taken Unknown] spironolactone 100 mg PO DAILY 04/23/20 [History Last Taken Unknown] cephalexin 500 mg PO Q6 #40 capsule 09/13/20 [Rx Last Taken Unknown] pantoprazole 40 mg PO DAILY 09/16/20 [History Last Taken Unknown] Allergy/AdvReac Type Severity Reaction Status Date / Time No Known Allergies Allergy Verified 09/13/20 18:31 Surgical History History of surgery on left wrist Social History Smoking Status: Former smoker ROS ROS ED ROS Narrative Patient denies any recent illness. Review of Systems ROS Unobtainable: Denies due to mental status Constitutional Constitutional ED: Denies fever(s) or sweats Eyes Eyes: Denies change in vision ENT ENT ED: Denies ear pain or sore throat Cardiovascular Cardiovascular: Denies chest pain Respiratory/Chest Respiratory/Chest: Denies cough or dyspnea Gastrointestinal Gastrointestinal: Reports nausea; Denies abdominal pain, diarrhea or vomiting Genitourinary Genitourinary ED: Denies dysuria or hematuria Musculoskeletal Musculoskeletal: Denies myalgias Integumentary Denies rash Neurologic Neurologic: Reports headache(s) Psychiatric Psychiatric: Denies depression Endocrine Endocrinology: Denies polyuria Hematologic/Lymphatic Hematologic/Lymphatic: Denies easy bruising Allergic/Immunologic Allergic/Immunologic ED: Denies urticaria EXAM Physical Exam Narrative Exam Narrative: Older male brought in by squad examined in the hallway initial blood pressure 138/83. Obvious slurred speech with left facial droop and left arm and leg ataxia and weakness. Lungs are clear. Heart regular rhythm rate about 90. Abdomen soft nontender. Neurologically the above symptoms. Const Vital Signs: 09/16/20 20:10 09/16/20 20:13 09/16/20 20:15 Temperature 98.6 F Temperature Source Temporal Pulse Rate 100 100 Respiratory Rate 16 16 Blood Pressure 138/83 H 138/83 H Blood Pressure Mean 101 101 Blood Pressure Source Pulse Ox 99 100 Oxygen Delivery Method Room Air Room Air 09/16/20 20:27 09/16/20 20:30 09/16/20 20:42 Temperature Temperature Source Pulse Rate 100 99 Respiratory Rate 18 18 Blood Pressure 126/70 H 130/64 H Blood Pressure Mean 88 86 Blood Pressure Source Pulse Ox 99 100 99 Oxygen Delivery Method Room Air Room Air Room Air 09/16/20 20:45 09/16/20 20:51 09/16/20 20:55 Temperature Temperature Source Pulse Rate 100 100 Respiratory Rate 16 13 Blood Pressure 130/64 H 109/73 116/65 Blood Pressure Mean 86 85 82 Blood Pressure Source Monitor Pulse Ox 99 Oxygen Delivery Method Room Air 09/16/20 20:57 Temperature Temperature Source Pulse Rate 100 Respiratory Rate 16 Blood Pressure 119/65 Blood Pressure Mean 83 Blood Pressure Source Pulse Ox 99 Oxygen Delivery Method Room Air Positive well nourished and well developed General Appearance ED: well developed HEENT Reports moist mucous membranes atraumatic; Negative for trauma Eyes EOMs intact bilaterally Eyes Narrative: Left facial droop Neck no lymphadenopathy, supple and no JVD General: Negative for tenderness Chest Wall inspection of chest normal Resp normal respiratory effort and clear to auscultation bilaterally Cardio no murmurs Rate: regular rate Rhythm: regular rhythm GI normal to inspection, nondistended, normoactive bowel sounds, soft to palpation, non-tender and non-distended Back/Spine no CVA tenderness Extremity Extremity Narrative: Left-sided weakness. Left-sided upper and lower extremity ataxia. Cellulitis right calf. General Extremety ED: Yes edema; Negative for deformity or tenderness General Extremity: edema; Negative for deformity Neuro Sensorium / Orientation: alert, oriented to place and oriented to time Speech: Negative for speech normal Motor Exam: Negative for strength 5/5 throughout Psych mental status grossly normal Skin Skin Narrative: Right lower leg cellulitis. STROKE Vital Signs/Narrative: Vital Signs Temp Pulse Resp BP Pulse Ox 09/16/20 20:57 100 16 119/65 99 09/16/20 20:55 100 13 116/65 99 09/16/20 20:51 109/73 09/16/20 20:45 100 16 130/64 H 09/16/20 20:42 99 18 130/64 H 99 09/16/20 20:30 100 09/16/20 20:27 100 18 126/70 H 99 09/16/20 20:15 98.6 F 09/16/20 20:13 100 16 138/83 H 100 09/16/20 20:10 100 16 138/83 H 99 Inital Vital Signs reviewed: Yes NIHSS Initial: 1a Level of Consciousness: 0 1b LOC Questions (Score 2 if aphasic/stupor): 0 1c LOC Commands (Only score 1st attempt): 0 2 Best Gaze (If aphasic, use reflexive mvmts.): 0 3 Visual: 0 4 Facial Palsy: 1 (left droop) 5 Motor Arm Right (UN = amputation/fusion): 0 6 Motor Leg Right: 1 6 Motor Leg Left: 1 7 Limb ataxia (Only + if out of proportion): 2 8 Sensory (Aphasia/stupor=0 or 1, coma=2): 0 9 Best Language: 1 10 Dysarthria (mute, coma=2, intubated=UN): 0 11 Extinction and Inattention (only scored if +): 0 Total Score: 6 MDM [facility] MDM Narrative Medical decision making narrative: Patient presents with left-sided weakness, facial droop and slurred speech. Went through stroke protocol. Quickly determined that he had a right hypertensive bleed 2 x 2 cm in the basal ganglia. Patient will be treated as a hemorrhagic stroke. Was placed on nicardipine drip was on a very short period of time his pressure dropped to 109 and it was stopped. Spoke to [facility] per patient request. They have accepted him to their neuro ICU. They spoke to their neurosurgeon. Ground transport will take at least an hour and a half for arrival so the patient will be sent by air. Lab Data Attestation: I reviewed the patient's lab results. Lab results narrative: CT of his brain is read by the radiologist shows a right- sided hypertensive bleed in the basal ganglia 2 x 2 cm EKG normal sinus rhythm rate of 96 no acute signs of TN or ischemia. CBC White count of 7 hemoglobin 14. Platelets 151,000. Labs: Laboratory Results - last 24 hr 09/16/20 09/16/20 09/16/20 20:25 20:25 20:25 WBC Cancelled Corrected WBC Cancelled RBC Cancelled Hgb Cancelled Hct Cancelled MCV Cancelled MCH Cancelled MCHC Cancelled RDW Std Deviation Cancelled RDW Coeff of Abhinav Cancelled Plt Count Cancelled MPV Cancelled Immature Gran % (Auto) Cancelled Neut % (Auto) Cancelled Lymph % (Auto) Cancelled Schley % (Auto) Cancelled Eos % (Auto) Cancelled Baso % (Auto) Cancelled Absolute Neuts (auto) Cancelled Absolute Lymphs (auto) Cancelled Total Counted Cancelled Neutrophils % (Manual) Cancelled Band Neutrophils % Cancelled Lymphocytes % (Manual) Cancelled Monocytes % (Manual) Cancelled Eosinophils % (Manual) Cancelled Basophils % (Manual) Cancelled Metamyelocytes % Cancelled Myelocytes % Cancelled Promyelocytes % Cancelled Blast Cells % Cancelled Plasma Cell % (Manual) Cancelled Other Cells % Cancelled Nucleated RBC % Cancelled Nucleated RBCs/100 WBC Cancelled Differential Comment Cancelled Diff Path Review Cancelled Hypersegmented Neuts Cancelled Atypical Lymphocytes Cancelled Reactive Lymphocytes Cancelled Smudge Cells Cancelled Toxic Granulation Cancelled Toxic Vacuolation Cancelled Dohle Bodies Cancelled Winston Rods Cancelled Platelet Estimate Cancelled Plt Morphology Comment Cancelled RBC Morphology Cancelled Polychromasia Cancelled Hypochromasia Cancelled Poikilocytosis Cancelled Basophilic Stippling Cancelled Anisocytosis Cancelled Microcytosis Cancelled Macrocytosis Cancelled Spherocytes Cancelled Sickle Cells Cancelled Target Cells Cancelled Tear Drop Cells Cancelled Ovalocytes Cancelled Stomatocytes Cancelled [place] Bodies Cancelled [place] Cells Cancelled Bite Cells Cancelled Crenated Cell Cancelled Acanthocytes (Spur) Cancelled Rouleaux Cancelled Schistocytes Cancelled PT Cancelled INR Cancelled APTT Cancelled Sodium Cancelled Potassium Cancelled Chloride Cancelled Carbon Dioxide Cancelled Anion Gap Cancelled BUN Cancelled Creatinine Cancelled Estim Creat Clear Calc Cancelled Est GFR (MDRD) Af Amer Cancelled Est GFR (MDRD) Non-Af Cancelled BUN/Creatinine Ratio Cancelled Glucose Cancelled Calcium Cancelled Troponin I Cancelled Radiography Diagnostic Testing: Radiology Impression Brain CT 09/16/20 20:18 IMPRESSION: Acute hypertensive intracerebral hemorrhage in the right basal ganglia. No significant mass effect. Chronic ischemic changes of the brain. N.B. : The above information has been verbally conveyed by Mega Hameed MD to Javon Hobson MD, on 09/16/2020 20:27:53 (ET). Electronically Signed: Mega Hameed MD at 20:28 EDT Tel , Service support , ADDENDUM: 09/16/202034 IMPRESSION: Acute hypertensive intracerebral hemorrhage in the right basal ganglia. No significant mass effect. Chronic ischemic changes of the brain. N.B. : The above information has been verbally conveyed by Mega Hameed MD to Javon Hobson MD, on 09/16/2020 20:27:53 (ET). Electronically Signed: Mega Hameed MD at 20:28 EDT Tel , Service support , EKG Initial EKG: Attestation: I personally reviewed and interpreted this EKG as follows: Interpretation: Sinus Rhythm and No Acute Injury Pattern Comments: EKG shows a normal sinus rhythm rate of 96 with no acute signs of TN or ischemia. No old EKG available for comparison. Prior: No Prior Stroke Documentation Questions Stroke Team Activated: Yes Reviewed Inclusion/Exclusion criteria: Yes Was Patient considered for Endovascular Intervention?: No IV Alteplase (t-PA) Administered: No (Acute intracranial bleed so was not a candidate.) No contraindications for IV Alteplase (t-PA) administration.: Yes Alteplase (t-PA) risks, benefits, alternative discussed: No Not given: Patient refusal: Yes Critical Care Time Critical Care Time: Yes Critical care time (excluding procedures): 30-74 minutes, Including time spent:, Discussing w/Patient &/or Family/Heating Element Repairer, Discussing w/Consultants, Arranging Admission or Transfer and Performing Direct Patient Care at Bedside Discharge Plan Triage Chief Complaint: Neuro S/Sx ED Provider: Jules Hobson Dx/Rx/DC Orders Clinical Impression: Acute intracranial hemorrhage Prescriptions: No Action furosemide 40 MG tablet 40 mg PO DAILY RF: 0 spironolactone 100 MG tablet 100 mg PO DAILY RF: 0 cephalexin [cephalexin] 500 MG capsule 500 mg PO Q6 Qty: 40 RF: 0 pantoprazole 40 mg tablet,delayed release (DR/EC) 40 mg PO DAILY RF: 0 Primary Care Provider: Care Physician,No Primary Referrals: Care Physician,No Primary [Primary Care Provider] -
[2020-09-16] MEDS: Nicardipine HCl-0.9% Sod Chlor 20 MG/200 ML IV.SOLN 50 MG IV (20:45)
--- NOTE | 2020-09-16 20:46 | ED.RN ---
per Dr. Hobson start patient on cardene drip and do not try other bp meds maintain bp 120 systolic
--- NOTE | 2020-09-16 20:54 | ED.RN ---
BLOOD WORK CLOTTEDRomina IN TO REDRAW AT THIS TIME
--- NOTE | 2020-09-16 20:57 | ED.RN ---
[facility] CALLED AND ACCEPTED [id number]
[2020-09-16 21:01] LABS: Absolute Lymphocyte Count 1.07 X10^3/uL (0.83-4.51); Absolute Neutrophil Count 5.8 X10^3/uL (2.0-7.7); Basophil# 0.07 X10^3/uL; Basophil% 0.8 % (0-1); Eosinophils% 3.6 % (0-5); Hematocrit 36.9 % (40-54); Hemoglobin 13.3 g/dL (13.0-16.5); Lymphocyte # 1.07 X10^3/ul (0.83-4.51); Lymphocyte % 12.9 % (19-41); Mean Corpuscular Volume 108.2 fL (80-94); Mean Platelet Vol. 10.1 fl (6.2-12.0); Monocyte# 0.96 X10^3/uL; Monocyte% 11.6 % (0-10); NRBC Flagged by Analyzer 0 % (0-5); Neutrophil # 5.78 X10^3/uL (2.7-7.7); Neutrophil % 69.8 % (47-70); Platelet Count 133 K/mm3 (150-450); RBC Distribution Width CV 15.8 % (11.6-14.6); RBC Distribution Width SD 62.8 fl (35.1-43.9); Red Blood Count 3.41 M/mm3 (4.6-6.2); White Blood Count 8.3 K/mm3 (4.4-11.0)
--- NOTE | 2020-09-16 21:03 | ED.RN ---
[facility] CALLED FOR TRANSPORT ETA 90 MINS AT THIS TIME DUE DELAY [facility] CONTACTED FOR TRANSPORT. WILL CALL BACK WITH ETA
[2020-09-16 21:10] LABS: International Normalized Ratio 1.6; Partial Thromboplast Time 39.6 Seconds (24.1-36.2); Prothrombin Time (Protime)PT. 18.5 SECONDS (11.7-14.9)
--- NOTE | 2020-09-16 21:10 | RAD_ITS ---
STUDY: X-RAY CHEST REASON FOR EXAM: Male, 65 years old. Neuro deficit, acute, stroke suspected TECHNIQUE: Single frontal view of the chest. COMPARISON: None. FINDINGS: There is elevation of the right hemidiaphragm. There is no focal consolidation. Normal size heart. Normal mediastinum and shelbie. Normal visualized pulmonary arteries. Normal visualized aortic arch and descending thoracic aorta. Normal visualized thoracic spine. Normal visualized ribs, clavicles, and shoulders. There is no demonstrated abnormality of the visualized soft tissue structures of the upper abdomen. RAD/Chest 1 View IMPRESSION: No acute cardiopulmonary process. Electronically Signed: Effie Crane MD at 21:53 EDT Tel , Service support ,
[2020-09-16 21:21] LABS: Anion Gap 6 (5-15); BUN 9 mg/dL (7-18); BUN/Creat Ratio 18.1 RATIO (10-20); Chloride 98 mmol/L (98-107); EST Glomerular Filtration Rate 178 mL/min (>60); Est Glom Filt Rate - Afr Amer 215 mL/min (>60); Estimated Creatinine Clearance 147.29 ml/min; Glucose 118 mg/dL (74-106); Potassium 3.8 mmol/L (3.5-5.1); Sodium Level 132 mmol/L (136-145)
== END 2020-09-16 21:55 | disposition short-term general hospital (02) ==
PROVIDERS: Emergency Provider Emergency Medicine
DX: I61.9 Nontraumatic intracerebral hemorrhage, unspecified (principal); R47.81 Slurred speech; R29.810 Facial weakness; R27.0 Ataxia, unspecified; G81.94 Hemiplegia, unspecified affecting left nondominant side; R29.706 NIHSS score 6; I10 Essential (primary) hypertension; Z79.899 Other long term (current) drug therapy; Z87.891 Personal history of nicotine dependence
CPT/HCPCS: 51702; 70450; 71045; 80048; 84484; 85025; 85610; 85730; 93005; 96374; 99285; A4216